=== PATIENT | female | born 1940 | race Caucasian/White ===

== ENCOUNTER 2017-11-23 13:43 | Observation (INO) | payer MEDICARE, OTHER ==
--- NOTE | 2017-11-23 14:40 | ER Document Report ---
ED Medical Screen (RME) - General Chief Complaint: Chest Pain Stated Complaint: CHEST PAIN, IRREGULAR HEART BEAT Time Seen by Provider: 11/23/17 14:38 Mode of Arrival: Ambulatory Information source: Patient, Relative TRAVEL OUTSIDE OF THE [place] IN LAST 30 DAYS: No - HPI Patient complains to provider of: cp; palpitations Onset: This morning - pt has h/o PVC's seen by her PCP 2 days ago. Developed SSCP earlier today. Has taken ASA. - Related Data Allergies/Adverse Reactions: Penicillins Allergy (Verified 12/30/15 06:57) rash hives Past Medical History - Past Medical History Cardiac Medical History: Reports: Hx Hypertension Denies: Hx Heart Attack Pulmonary Medical History: Denies: Hx Asthma Neurological Medical History: Denies: Hx Cerebrovascular Accident, Hx Seizures GI Medical History: Denies: Hx Hepatitis, Hx Hiatal Hernia, Hx Ulcer Infectious Medical History: Denies: Hx Hepatitis Past Surgical History: Denies: Hx Mastectomy, Hx Open Heart Surgery, Hx Pacemaker Physical Exam - Vital signs Vitals: Temp Pulse Resp BP Pulse Ox 98.7 F 70 16 191/61 H 97 11/23/17 14:07 11/23/17 14:07 11/23/17 14:07 11/23/17 14:07 11/23/17 14:07 Course - Vital Signs Vital signs: Temp Pulse Resp BP Pulse Ox 98.7 F 70 16 191/61 H 97 11/23/17 14:07 11/23/17 14:07 11/23/17 14:07 11/23/17 14:07 11/23/17 14:07
[2017-11-23 15:13] LABS: ABSOLUTE BASOPHILS # (AUTO) 0.1 10^3/uL (0.0-0.2); ABSOLUTE EOSINOPHILS # (AUTO) 0.2 10^3/uL (0.0-0.6); ABSOLUTE LYMPHOCYTES (AUTO) 2.1 10^3/uL (0.5-4.7); ABSOLUTE MONOCYTES (AUTO) 0.8 10^3/uL (0.1-1.4); ABSOLUTE NEUT (AUTO) 4.1 10^3/uL (1.7-8.2); BASOPHILS % (AUTO) 0.9 % (0-2); EOSINOPHILS % (AUTO) 2.4 % (0-6); HEMATOCRIT 38.5 % (36.0-47.0); HEMOGLOBIN 13.1 g/dL (12.0-15.5); LYMPHOCYTES % (AUTO) 28.4 % (13-45); MEAN CORPUSCULAR HEMOGLOBIN 29.9 pg (27.0-33.4); MEAN CORPUSCULAR HGB CONC 34.1 g/dL (32.0-36.0); MEAN CORPUSCULAR VOLUME 88 fl (80-97); MONOCYTES % (AUTO) 11.4 % (3-13); PLATELET COUNT 195 10^3/uL (150-450); RED BLOOD COUNT 4.38 10^6/uL (3.72-5.28); RED CELL DISTRIBUTION WIDTH 13.5 % (11.5-14.0); SEGMENTED NEUTROPHILS % (AUTO) 56.9 % (42-78); TOTAL CELLS COUNTED % (AUTO) 100 %; WHITE BLOOD COUNT 7.2 10^3/uL (4.0-10.5)
[2017-11-23 15:34] LABS: BLOOD UREA NITROGEN 27 mg/dL (7-20); CALCIUM 9.9 mg/dL (8.4-10.2); GLUCOSE 129 mg/dL (75-110)
[2017-11-23 15:35] LABS: ALANINE AMINOTRANSFERASE 53 U/L (9-52); ALBUMIN 4.7 g/dL (3.5-5.0); ALKALINE PHOSPHATASE 56 U/L (38-126); ANION GAP 12 (5-19); ASPARTATE AMINO TRANSFERASE 37 U/L (14-36); BILIRUBIN,DIRECT 0.3 mg/dL (0.0-0.4); BILIRUBIN,TOTAL 0.8 mg/dL (0.2-1.3); CARBON DIOXIDE 28 mmol/L (22-30); CHLORIDE 104 mmol/L (98-107); CREATINE KINASE 68 U/L (30-135); POTASSIUM 3.6 mmol/L (3.6-5.0); SODIUM 143.7 mmol/L (137-145); TOTAL PROTEIN 7.9 g/dL (6.3-8.2)
[2017-11-23 15:46] LABS: CREATINE KINASE MB 1.08 ng/mL (<4.55)
[2017-11-23 15:49] LABS: TROPONIN I < 0.012 ng/mL
--- NOTE | 2017-11-23 16:24 | ER Document Report ---
ED Cardiac - General Chief Complaint: Chest Pain Stated Complaint: CHEST PAIN, IRREGULAR HEART BEAT Time Seen by Provider: 11/23/17 14:38 Mode of Arrival: Ambulatory Notes: The patient has a 77-year-old female, past medical history hypertension, presents with a few hours of substernal chest pain and feeling more frequent PVCs that cause her to cough. She took 325 mg aspirin prior to arrival and is having no chest pain on my evaluation. She has a known history of PVCs and saw her primary care physician 2 days ago for these symptoms. Her Cardizem was increased to 360 mg daily and she has an appointment with Dr. Clark ( Cardiology) in 6 days. She denies syncope, shortness of breath, nausea, vomiting , back pain, headache, rash, numbness or tingling. TRAVEL OUTSIDE OF THE [place] IN LAST 30 DAYS: No - Related Data Allergies/Adverse Reactions: Penicillins Allergy (Verified 12/30/15 06:57) rash hives Past Medical History - General Information source: Patient, Relative - Social History Smoking Status: Former Smoker Frequency of alcohol use: None Drug Abuse: None Family History: Reviewed & Not Pertinent Patient has suicidal ideation: No Patient has homicidal ideation: No - Past Medical History Cardiac Medical History: Reports: Hx Hypercholesterolemia, Hx Hypertension Denies: Hx Heart Attack Pulmonary Medical History: Denies: Hx Asthma Neurological Medical History: Denies: Hx Cerebrovascular Accident, Hx Seizures Renal/ Medical History: Denies: Hx Peritoneal Dialysis GI Medical History: Reports: Hx Gastroesophageal Reflux Disease. Denies: Hx Hepatitis, Hx Hiatal Hernia, Hx Ulcer Infectious Medical History: Denies: Hx Hepatitis Past Surgical History: Reports: Hx Orthopedic Surgery - carpal tunnel right. Denies: Hx Mastectomy, Hx Open Heart Surgery, Hx Pacemaker Review of Systems - Review of Systems Notes: REVIEW OF SYSTEMS: CONSTITUTIONAL: -fevers, -chills EENT: -eye pain, -difficulty swallowing, -nasal congestion CARDIOVASCULAR: +chest pain, -syncope. RESPIRATORY: -cough, -SOB GASTROINTESTINAL: -abdominal pain, -nausea, -vomiting, -diarrhea GENITOURINARY: -dysuria, -hematuria MUSCULOSKELETAL: -back pain, -neck pain SKIN: -rash or skin lesions. HEMATOLOGIC: -easy bruising or bleeding. LYMPHATIC: -swollen, enlarged glands. NEUROLOGICAL: -altered mental status or loss of consciousness, -headache, - neurologic symptoms PSYCHIATRIC: -anxiety, -depression. ALL OTHER SYSTEMS REVIEWED AND NEGATIVE. Physical Exam - Vital signs Vitals: Temp Pulse Resp BP Pulse Ox 98.7 F 70 16 191/61 H 97 11/23/17 14:07 11/23/17 14:07 11/23/17 14:07 11/23/17 14:07 11/23/17 14:07 - Notes Notes: PHYSICAL EXAMINATION: GENERAL: Well-appearing, well-nourished and in no acute distress. HEAD: Atraumatic, normocephalic. EYES: Pupils equal round and reactive to light, extraocular movements intact, sclera anicteric, conjunctiva are normal. ENT: nares patent, oropharynx clear without exudates. Moist mucous membranes. NECK: Normal range of motion, supple without lymphadenopathy LUNGS: Breath sounds clear to auscultation bilaterally and equal. No wheezes rales or rhonchi. HEART: Regular rate and rhythm without murmurs ABDOMEN: Soft, nontender, normoactive bowel sounds. No guarding, no rebound. No masses appreciated. EXTREMITIES: Normal range of motion, no pitting or edema. No cyanosis. NEUROLOGICAL: Cranial nerves grossly intact. Normal speech, normal gait. Normal sensory and motor exams. PSYCH: Normal mood, normal affect. SKIN: Warm, Dry, normal turgor, no rashes or lesions noted. Course - Re-evaluation Re-evalutation: Patient with a few hours of substernal chest pain that resolved upon my evaluation. While on the monitor, she is having frequent PVCs and is already on 360 mg Cardizem ER for these. EKG does not show a STEMI and first troponin is negative. Patient's last stress test was 17 years ago in [place] she has never had a heart catheterization. Her HEART score is 6 (1 for concerning story, 1 for EKG, 2 for age, 2 for risk factors, 0 for troponin). Symptoms are atypical for aortic dissection or PE at this time. Spoke to patient and due to her elevated heart score, recommend observation for further evaluation of her chest pain and possible stress test in the morning. She agrees with plan. Her primary care physician is Dr. Landen Tyson. 11/23/17 16:48 Spoke to Jonnie Pond and she will admit patient to Tele Obs. - Vital Signs Vital signs: Temp Pulse Resp BP Pulse Ox 98.7 F 70 17 159/61 H 95 11/23/17 14:07 11/23/17 14:07 11/23/17 18:00 11/23/17 16:01 11/23/17 18:00 - Laboratory Result Diagrams: 11/23/17 14:54 11/23/17 14:54 Laboratory results interpreted by me: 11/23/17 14:54 BUN 27 H Glucose 129 H AST 37 H ALT 53 H - Diagnostic Test Radiology reviewed: Image reviewed, Reports reviewed Radiology results interpreted by me: CXR: NAD - EKG Interpretation by Me EKG shows normal: Sinus rhythm, [place], Intervals, QRS Complexes, ST-T Waves Rate: Normal Rhythm: PVC's When compared to previous EKG there are: Previous EKG unavailable Additional EKG results interpreted by me: No STEMI Discharge - Discharge Clinical Impression: Frequent unifocal PVCs Chest pain Qualifiers: Chest pain type: unspecified Qualified Code(s): R07.9 - Chest pain, unspecified Condition: Stable Disposition: ADMITTED OBSERVATION Admitting Provider: Hospitalist - [facility] Admitted: Telemetry
[2017-11-23] MEDS ORDERED: ACETAMINOPHEN 325 MG TABLET PO PRN (17:06)
--- NOTE | 2017-11-23 17:06 | RADIOLOGY REPORT (SQ) ---
EXAM DESCRIPTION: CHEST PA/LAT COMPLETED DATE/TIME: 11/23/2017 4:53 pm REASON FOR STUDY: cp COMPARISON: None. EXAM PARAMETERS: NUMBER OF VIEWS: two views TECHNIQUE: Digital Frontal and Lateral radiographic views of the chest acquired. RADIATION DOSE: NA LIMITATIONS: none FINDINGS: LUNGS AND PLEURA: No opacities, masses or pneumothorax. No pleural effusion. MEDIASTINUM AND HILAR STRUCTURES: No masses or contour abnormalities. HEART AND VASCULAR STRUCTURES: Heart normal size. No evidence for failure. BONES: No acute findings. HARDWARE: None in the chest. OTHER: No other significant finding. IMPRESSION: NO SIGNIFICANT RADIOGRAPHIC FINDING IN THE CHEST. TECHNICAL DOCUMENTATION: JOB ID: [id number] [employer]- All Rights Reserved Reading location - IP/workstation name: [email or web address]
[2017-11-23] MEDS ORDERED: NORMAL SALINE 1000 ML 1,000 ML IV ONE (18:27)
[2017-11-23] MEDS ORDERED: ENOXAPARIN SODIUM INJ 40 MG/0.4 ML DISP.SYRIN SUBCUT ONE (19:00)
--- NOTE | 2017-11-23 19:05 | EKG REPORT ---
SEVERITY:- ABNORMAL ECG - SINUS RHYTHM MULTIPLE VENTRICULAR PREMATURE COMPLEXES NONSPECIFIC ST-T CHANGES DIFFUSE LEADS. : Confirmed by: Zen Smith MD 23-Nov-2017 19:05:35
--- NOTE | 2017-11-23 21:08 | HISTORY AND PHYSICAL E ---
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 Clark CHIEF COMPLAINT: Chest heaviness. HISTORY OF PRESENT ILLNESS: The patient is a very pleasant, 77-year-old female with a past medical history of hypertension and PVCs. The patient prevented to the Emergency Department with a chief complaint of chest heaviness. The patient reports a long history of PVCs which she describes as stress induced. The patient stated that when she first sought help for this was in [place]. She saw cardiology at that time and had a stress test which was reported to be "normal." The patient had been on a number of agents to control her blood pressure, and does believe that metoprolol made her quite sleepy and groggy, and that is the reason she is not using it. The patient apparently had been on Cardizem for quite a period of time, and recently, about a year ago, had her dosage increased and has not had any symptomatic PVCs since that time. However, the patient states that since July she has had ever increasing stress in her life and has had more frequent PVCs leading to her have chest discomfort. Upon presentation in the Emergency Department, the patient was found to have no acute EKG changes. Initial troponin was found to be unremarkable. The patient was found to be in sinus rhythm with no evidence of PVCs, but no evidence of coupling, and the patient has been referred to the hospital for observation and management of chest pain. PAST MEDICAL HISTORY: Remarkable for: 1. Hypertension. 2. Hypothyroidism. 3. Glaucoma. 4. Hyperlipidemia. 5. GERD. 6. Frequent PVCs. PAST SURGICAL HISTORY: Remarkable for right carpal tunnel surgery. ALLERGIES: Include: PENICILLIN. HOME MEDICATIONS: Include: 1. Lumigan 1 drop in both eyes q. hour of sleep. 2. Cardizem CD 360 mg p.o. daily. 3. Hydrochlorothiazide 25 mg daily. 4. Synthroid 75 mcg p.o. q.a.m. 5. Omeprazole 20 mg p.o. daily. 6. Livalo 1 mg p.o. q. hour of sleep. 7. Timoptic 0.25%, 1 drop in both eyes b.i.d. 8. Valsartan 320 mg p.o. daily. SOCIAL HISTORY: The patient currently resides at home with her , who is also her surrogate decision maker. He can be reached at [phone]. The patient is retired. She denies any history of alcohol use. No history of illicit drug use. The patient does report a history of tobacco. She quit smoking a decade ago. FAMILY MEDICAL HISTORY: The patient's parents are of old age. The patient does have children who are healthy. Denies any chronic familial medical problems. REVIEW OF SYSTEMS: CONSTITUTIONAL: The patient denies any fevers or chills. No dizziness or weakness or loss of appetite. SKIN: The patient denies any diaphoresis, rashes, bruising, or itching. HEENT: Denies any visual change or hearing loss. No nasal drainage or sore throat. No headache. CARDIOVASCULAR: The patient denies any shortness of breath, chest pain, edema, heart palpitations. Does admit a chest heaviness. RESPIRATORY: Denies any cough, sputum production, or hemoptysis. GASTROINTESTINAL: Denies any nausea, vomiting, diarrhea, abdominal pain, bloating, hematemesis, constipation, or melena. No hematochezia. GENITOURINARY: Denies any hematuria, pyuria, or dysuria. MUSCULOSKELETAL: Denies any acute or chronic joint pain. NEUROLOGICAL: No seizures, tremors, or loss of consciousness. HEMATOLOGIC: Denies any thelma bleeding, easy bruising. ENDOCRINE: Denies any recent weight changes. PSYCHIATRIC: Denies any suicidal or homicidal ideations. The rest of the review of the other organ systems is negative. PHYSICAL EXAMINATION: GENERAL: On examination, the patient is a well-developed, well-nourished, 77-year-old female who is awake, alert, and oriented to person, place, time, and situation. She is verbal to conversation. Would not appear to be in any acute distress. VITAL SIGNS: Temperature is 98.7. Pulse 70. Respirations 16. Blood pressure is 159/61. Oxygen saturation is 97% on room air. SKIN: Warm, dry, no rash. She is not diaphoretic. HEENT: Pupils equal, round, and reactive to light and accommodation. Sclerae are not icteric. There are no mouth lesions. Tongue is midline. Neck is supple. There is no JVD. CARDIOVASCULAR: The heart has a normal sinus rhythm with occasional PVCs. CHEST: Symmetrical, unlabored. ABDOMEN: Nondistended. EXTREMITIES: No clubbing, cyanosis, edema, or peripheral signs of embolization. Pedal pulses noted to be +1 bilaterally. PSYCHIATRIC: Appropriate affect. Pleasant mood. DIAGNOSTIC STUDIES: Hematology panel on 11/23/2017: WBCs are 7.2, hemoglobin 13.1, hematocrit 38.5, platelet count is 195,000. Chemistry panel on 11/23/2017: Sodium is 143, potassium 3.3, chloride is 104, carbon dioxide 28, BUN 27, creatinine is 0.7, glucose 129, calcium is 9.9, bilirubin was 0.8, AST 37, ALT 63, alk phos 56, total protein 7.9, albumin 4.7. CK 68, CK-MB is 1.08, troponin is 0.012. Chest x-ray obtained on 11/23/2017 reveals no significant radiographic finding of the chest. EKG obtained on 11/23/2017 reveals sinus rhythm. IMPRESSION AND PLAN: 1. Chest heaviness and frequent premature ventricular contractions. Will resume the patient's home medications. Additionally, the patient does appear slightly dehydrated with an elevated BUN. Will give the patient a liter of fluid and see if there is improvement in her symptoms with this. We will also schedule her for a stress test, as the patient does have an upcoming appointment with Dr. Clark and would like to have this done prior to seeing him, which is reasonable. Will obtain serial cardiac enzymes, repeat EKG, and monitor continuously. 2. Hypertension. Will continue the patient's home blood pressure medications and follow. 3. Gastroesophageal reflux disease. Will continue the patient's home proton-pump inhibitor. 4. Deep-venous thrombosis prophylaxis. We will cover the patient with Lovenox. DISPOSITION: THE PATIENT IS A FULL CODE. Due to the patient's symptomatology and diagnostic findings, will reevaluate in the a.m. Time spent on this admission, including assessment and plan, physical examination, patient education, and review of records is 50 minutes. DICTATING PHYSICIAN: SHELIA GARCÍA NP [id number] PHY#: [id number] ID: [id number] JOB#: [id number] ACCT: [id number] cc: >
[2017-11-23] MEDS ORDERED: PITAVASTATIN CALCIUM 1 MG PO SCH (22:00)
[2017-11-23] MEDS: TIMOLOL MALEATE 0.25% OPH SOLN 5 ML OU SCH (22:08)
[2017-11-23] MEDS: BIMATOPROST 0.01% OPH SOLN 2.5 ML/BOTTLE OU SCH (22:08)
[2017-11-23] MEDS: DOCUSATE SODIUM 100 MG CAPSULE PO SCH (22:08)
[2017-11-24] MEDS: LANSOPRAZOLE 15 MG TAB.RAP.DR PO SCH (06:08)
[2017-11-24] MEDS: LEVOTHYROXINE SODIUM 0.075 MG TABLET PO SCH (06:08)
[2017-11-24 07:30] LABS: CHOLESTEROL 201.42 mg/dL (0-200); TRIGLYCERIDES 142 mg/dL (<150)
[2017-11-24 07:41] LABS: DIRECT LDL 131 mg/dL (<100)
--- NOTE | 2017-11-24 08:55 | EKG REPORT ---
SEVERITY:- BORDERLINE ECG - SINUS RHYTHM MILD NONSPECIFIC ST-T CHANGES ANTERIOR LEADS. : Confirmed by: Zen Smith MD 24-Nov-2017 08:54:54
[2017-11-24] MEDS ORDERED: DILTIAZEM HCL 360 MG PO SCH (10:00)
[2017-11-24] MEDS ORDERED: LOSARTAN POTASSIUM 25 MG TABLET PO SCH (10:30)
--- NOTE | 2017-11-24 10:40 | PDOC CONSULTATION ---
Consultation Consult Date: 11/24/17 Attending physician:: BROWN PEREZ Consult reason:: Chest pain and palpitations History of Present Illness Admission Date/PCP: 11/23/17 17:56 ERLIN LIMON MD Patient complains of: Chest pain and palpitations History of Present Illness: The patient has a 77-year-old female, past medical history hypertension, presents with a few hours of substernal chest pain and feeling more frequent PVCs that cause her to cough. She took 325 mg aspirin prior to arrival and is having no chest pain on my evaluation. She has a known history of PVCs and saw her primary care physician 2 days ago for these symptoms. Her Cardizem was increased to 360 mg daily and she has an appointment with Dr. Clark ( Cardiology) in 6 days. She denies syncope, shortness of breath, nausea, vomiting , back pain, headache, rash, numbness or tingling. Patient describes intolerance to multiple statins except pitavastatin. Patient also describes side effects to previous beta-blockers. Patient also describes difficult to control hypertension for many years. She does describe history of chronic habitual snoring. Past Medical History Cardiac Medical History: Reports: Hyperlipidema, Hypertension Denies: Myocardial Infarction Pulmonary Medical History: Denies: Asthma Neurological Medical History: Denies: Seizures GI Medical History: Reports: Gastroesophageal Reflux Disease Denies: Hepatitis, Hiatal Hernia Hematology: Denies: Anemia, Sickle Cell Disease Past Surgical History Past Surgical History: Reports: Orthopedic Surgery - carpal tunnel right Denies: Amputation, Mastectomy, Pacemaker Social History Information Source: Patient Smoking Status: Former Smoker - Advance Directive Resuscitation Status: Full Code Surrogate healthcare decision maker:: Patient's is the surrogate decision-maker Family History Family History: Hypertension Parental Family History Reviewed: Yes Children Family History Reviewed: Yes Sibling(s) Family History Reviewed.: Yes Medication/Allergy Home Medications: Bimatoprost [Lumigan 0.01% Oph Soln 2.5 ml/Bottle] 1 drop OU QHS 11/23/17 Diltiazem HCl [Diltiazem 24Hr Cd] 360 mg PO DAILY 11/23/17 Hydrochlorothiazide [Hydrodiuril 25 mg Tablet] 25 mg PO DAILY 11/23/17 Levothyroxine Sodium [Synthroid] 75 mcg PO Q6AM 11/23/17 Omeprazole 20 mg PO DAILY 11/23/17 Pitavastatin Calcium [Livalo] 1 mg PO QHS 11/23/17 Timolol Maleate [Timoptic 0.25% Oph Soln 5 ml] 1 drop OU BID 11/23/17 Valsartan [Diovan] 320 mg PO DAILY 11/23/17 Allergies/Adverse Reactions: Penicillins Allergy (Verified 12/30/15 06:57) rash hives Review of Systems Review of Systems: Please see history of present illness and past medical history as wall. Constitutional: No fever or chills reported. Head : No recent chronic headaches, recent head injury. Eyes: No recent eye pain, diplopia, redness, discharge, acute visual changes. Ears: No recent chronic ear pain, acute hearing loss, ear discharge. Oral cavity: No recent ulcerations, bleeding, oral cavity discomfort. Neck: No recent acute neck pain reported. Hematologic: No recent easy bruising or bleeding or hematologic malignancy reported. Lymphatic: No recent lymphatic malignancy, chronic lymphadenopathy reported yet Cardiovascular system review: See history of present illness. Respiratory system review: No recent chronic cough, hemoptysis, blood clots in the lungs reported. Mild Shortness of breath on exertion Gastrointestinal system review: Negative for any recent acute or chronic abdominal pain, hematemesis, melena, recent change in bowel habits. Genitourinary system review: No recent acute or chronic hematuria, flank pain, UTI etc. reported. Skin system review: Negative for any recent abnormal bruising, no rash, no pruritus reported. Neurologic: No prior history of strokes, mini strokes, seizure disorder. Psychologic: No history of major psychosis or major depression reported. Musculoskeletal: Minor aches and pains reported. No acute joint swelling reported. Endocrine: No recent polyuria, polydipsia, recent heat or cold intolerance. Physical Exam Vital Signs: Temp Pulse Resp BP Pulse Ox 98.0 F 58 L 16 164/58 H 98 11/24/17 07:12 11/24/17 07:12 11/24/17 07:12 11/24/17 07:12 11/24/17 07:12 Intake & Output 11/23/17 11/24/17 11/25/17 06:59 06:59 06:59 Intake Total 1341 Output Total 700 Balance 641 Weight 64.2 kg Exam: GENERAL: well-nourished and in no acute distress. Alert and oriented x3 HEAD: Atraumatic, normocephalic. EYES: Pupils equal round and reactive to light, extraocular movements intact, sclera anicteric, conjunctiva are normal. ENT: TMs normal, nares patent, oropharynx clear without exudates. Moist mucous membranes. No oral ulcerations or bleeding gums noted NECK: supple without lymphadenopathy. Trachea is central. No cervical or axillary lymphadenopathy noted. Carotids are 2+, JVD WNL LUNGS: Respiration seems nonlabored, no significant accessory muscle action noted. Breath sounds clear to auscultation bilaterally and equal noted. No wheezes rales or rhonchi noted. No significant dullness noted on percussion. CHEST: Palpation of the chest wall shows no significant chest wall tenderness. No other significant abnormalities noted. 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 ABDOMEN: Soft, no significant tenderness appreciated, normoactive bowel sounds. No guarding, no rebound. No rigidity noted . No masses appreciated. EXTREMITIES: Pedal pulses are 1-2+, no calf tenderness noted. No clubbing or cyanosis.trace pedal edema noted NEUROLOGICAL: Focused neurological exam showed no significant neurologic deficit. Normal speech, no focal weakness appreciated. PSYCH: Normal mood, normal affect. Judgment and insight within normal limits. SKIN: No significant ecchymosis, rash, ulcerations or signs of pruritus noted. MUSCULOSKELETAL EXAM: No significant joint swelling noted. Results Laboratory Results: 11/24/17 06:16 Triglycerides 142 Cholesterol 201.42 H LDL Cholesterol Direct 131 H VLDL Cholesterol 28.0 HDL Cholesterol 45 11/23/17 11/24/17 18:10 00:34 Troponin I < 0.012 0.015 EKG Comments: Sinus rhythm, no acute ST-T wave changes noted Impressions: Chest X-Ray 11/23/17 14:38 IMPRESSION: NO SIGNIFICANT RADIOGRAPHIC FINDING IN THE CHEST. Assessment & Plan - Diagnosis (1) Chest pain Qualifiers: Chest pain type: unspecified Qualified Code(s): R07.9 - Chest pain, unspecified (2) Frequent unifocal PVCs Is this a current diagnosis for this admission?: Yes (3) Hypertension Qualifiers: Hypertension type: essential hypertension Qualified Code(s): I10 - Essential (primary) hypertension Is this a current diagnosis for this admission?: Yes (4) Dyslipidemia Is this a current diagnosis for this admission?: Yes (5) Sleep disorder Is this a current diagnosis for this admission?: Yes (6) Heart murmur Is this a current diagnosis for this admission?: Yes - Notes Notes: Chest pain: Agreed that there is intermediate probability of chest pain being from underlying coronary artery disease. Cardiac enzymes and EKG has been relatively unremarkable. Agree with nuclear stress test which was performed. Results are pending. Frequent ectopics, ventricular and also palpitations: Patient will benefit from a 2D echo. This was ordered stat. This is a significant symptom for this patient. Patient was noted to have bigeminy run of ventricular ectopy during the stress test. Recommend maintaining electrolytes WNL. Hypertension: Blood pressure has been difficult to control. Patient seems to have underlying sleep apnea syndrome based on oropharyngeal exam, comorbid diagnosis and history of loud snoring. Dyslipidemia: Patient has intolerance to multiple statins except for pitavastatin. Patient may be allowed to take her own home medication in this regard as our pharmacy does not carry this particular medication. Sleep disorder: Patient will benefit from a sleep study. I will be happy to schedule this as an outpatient. Heart murmur: Patient seems to have a aortic incompetence murmur. Will get a 2D echo to evaluate this further. - Time Time Spent: 30 to 50 Minutes - CODE STATUS was discussed, patient remains full code. Surrogate decision-maker unchanged. Multiple medical problems were addressed. More than 50% of the time spent coordinating care, discussing management plans with involved caregivers. Management plans discussed with involved personnels. Medical decision making was of moderate to high complexity , patient's has multiple comorbidities. Medications reviewed and adjusted accordingly: Yes
[2017-11-24] MEDS ORDERED: VALSARTAN 160 MG TABLET PO ONE (11:15)
[2017-11-24] MEDS: ENOXAPARIN SODIUM INJ 40 MG/0.4 ML DISP.SYRIN SUBCUT SCH (11:53)
[2017-11-24] MEDS: DOCUSATE SODIUM 100 MG CAPSULE PO SCH ×2 (11:54→17:06)
[2017-11-24] MEDS: DILTIAZEM HCL 180 MG CAPSULE.CR PO SCH (11:55)
[2017-11-24] MEDS: TIMOLOL MALEATE 0.25% OPH SOLN 5 ML OU SCH ×2 (11:56→21:16)
--- NOTE | 2017-11-24 12:08 | DRAGON STRESS TEST REPORT ---
INTRAVENOUS LEXISCAN CARDIOLITE STRESS TEST USING SINGLE PHOTON EMMISION COMPUTERIZED TOMOGRAPHIC. DATE OF PROCEDURE: November 24, 2017, INDICATION : Chest pain and increased ventricular ectopy CARDIAC RISK FACTORS: Hypertension, dyslipidemia, family history of atrial fibrillation RESTING EKG: Sinus rhythm without any baseline ST-T wave changes. STRESS EKG: No significant ST segment changes but increased ventricular ectopy noted. REASON FOR TERMINATION: Protocol. PROCEDURE REPORT: Baseline heart rate 63 beats per minute with blood pressure of 182/69. Patient had no significant complaints. Heart rate at 2 minutes post bolus 88 with a blood pressure of 178/65. 3 minutes post bolus heart rate 79 with blood pressure of 179/64. No significant EKG changes were noted. Patient had no significant complaints during the procedure or postprocedure. Patient injected with Aminophyllin 75 mg at 3 minutes or later after Lexiscan bolus. CONCLUSIONS: Normal EKG and hemodynamic response to IV LexiScan. NUCLEAR DATA: At rest the patient was given 10.77 millicuries of technetium 99 sestamibi injected intravenously. As per protocol rest gated SPECT images were obtained. On day of stress test, the patient was given intravenous LexiScan at a dose of 0.4 mg in 5 mL intravenously, followed by flush with normal saline. Subsequently the stress dose of 31.7 millicuries of technetium 99 sestamibi was injected intravenously. As per protocol stress gated images were obtained. NUCLEAR INTERPRETATION: Both raw and processed data were used for interpretation. Visual, qualitative, computer-generated quantitative data was used. There was good myocardial uptake of technetium compound. Motion artifact and soft tissue attenuations were noted. Increased visceral uptake was noted. No definitive areas of transient perfusion defect noted, No definitive areas of fixed perfusion defect or scars noted. Mild decreased uptake was noted in the distal anterior wall slightly more decreased in stress imaging as compared to rest imaging but is felt to be related to differences in breast attenuation artifact. No corresponding wall motion abnormalities noted. Clinical correlation is requested. EKG gated imaging showed LV EF at 68 %, rest and stress gated EF similar visually. T. I D. ratio was 1.20. Lung heart ratio noted to be within normal limits 0.36. No significant extracardiac and abnormal radiotracer activities were noted. RV free wall uptake was noted to be borderline increased. IMPRESSION: Also refer to comments under nuclear interpretation. Also test results needs to be interpreted in the context of pretest probability. 1. No definitive areas of transient perfusion defect noted. 2. There is no definitive scintigraphic evidence of myocardial infarction/scar. 3. EKG gated imaging shows left ventricular ejection fraction of approx. 68 %. 4. Clinical correlation requested as occasionally single vessel disease or balanced ischemia could be missed. In approximately 10% of the cases Lexiscan may not cause adequate vasodilatory stress. RECOMMENDATIONS: Aggressive risk factor modification and medical management. Further evaluation may be needed if continued symptoms or other high risk indicators are noted on clinical evaluation. Close cardiology follow-up is also recommended. Clinical correlation with echocardiogram derived ejection fraction. Inability to exercise by itself can lead to increased cardiovascular event risks. Consider cardiology consultation and or follow-up if clinically indicated. I am available for cardiology evaluation and consultation if requested by the vegetable washer, unless patient already has a it technician. ITZEL
--- NOTE | 2017-11-24 12:22 | XCELERA REPORT ---
[address] [address] Transthoracic Echocardiogram Report Name: SKIP HARPER Age: 77 yrs Gender: Female : 1940 Patient Status: Inpatient Patient Location: [address] [place] [address] Study Date: 11/24/2017 10:39 AM Height: 60 in Weight: 141 lb BSA: 1.6 m2 Procedure: A complete two-dimensional transthoracic echocardiogram was performed (2D, M-mode, spectral and color flow Doppler). The study was technically adequate with some images being suboptimal in quality. Reason For Study: Ventricular dysrhythmia Ordering Physician: RON PAZ Performed By: Jeanette Martínez Interpretation Summary The left ventricular ejection fraction is within normal limits. There is borderline concentric left ventricular hypertrophy. Doppler measurements suggest pseudonormalized left ventricular relaxation, which is associated with grade II/IV or mild to moderate diastolic dysfunction The left ventricle is grossly normal size. No regional wall motion abnormalities noted. The right ventricular systolic function is normal. The right atrium is normal in size The left atrium is mildly dilated. There is a mild amount of mitral regurgitation There is no mitral valve stenosis. There is a mild amount of aortic regurgitation There is no aortic valve stenosis The aortic root is not well visualized but is probably normal size. The inferior vena cava appeared normal and decreased > 50% with respiration (RAP 5-10 mmHg) There is no pericardial effusion. MMode/2D Measurements & Calculations RVDd: 3.4 cm LVIDd: 4.5 cm FS: 38.3 % Ao root diam: 2.3 cm IVSd: 0.94 cm LVIDs: 2.8 cm EDV(Teich): 93.3 ml LVPWd: 0.88 cm ESV(Teich): 29.2 ml Ao root area: 4.3 cm2 EF(Teich): 68.7 % LA dimension: 3.7 cm Doppler Measurements & Calculations MV E max jaja: MV P1/2t max jaja: Ao V2 max: AI max jaja: 124.9 cm/sec 124.4 cm/sec 163.7 cm/sec 424.9 cm/sec MV A max jaja: MV P1/2t: 67.3 msec Ao max PG: AI max P.2 cm/sec 10.7 mmHg 72.2 mmHg MV E/A: 1.2 MVA(P1/2t): 3.3 cm2 AI dec slope: MV dec slope: 541.0 cm/sec2 251.8 cm/sec2 MV dec time: AI P1/2t: 0.21 sec 494.3 msec LV V1 max PG: PA V2 max: PI end-d jaja: TR max jaja: 4.2 mmHg 78.5 cm/sec 120.8 cm/sec 293.2 cm/sec LV V1 max: PA max P.5 mmHg TR max P.7 cm/sec 34.4 mmHg Left Ventricle The left ventricle is grossly normal size. There is borderline concentric left ventricular hypertrophy. The left ventricular ejection fraction is within normal limits. Doppler measurements suggest pseudonormalized left ventricular relaxation, which is associated with grade II/IV or mild to moderate diastolic dysfunction. No regional wall motion abnormalities noted. Right Ventricle The right ventricle is grossly normal size. There is normal right ventricular wall thickness. The right ventricular systolic function is normal. Atria The right atrium is normal in size. The left atrium is mildly dilated. Interarterial septum not well visualized and not well dopplered. Cannot comment on ASD/PFO presence. Mitral Valve The mitral valve is grossly normal. There is no mitral valve stenosis. There is a mild amount of mitral regurgitation. Aortic Valve The aortic valve is grossly normal. There is no aortic valve stenosis. There is a mild amount of aortic regurgitation. Tricuspid Valve The tricuspid valve is not well visualized, but is grossly normal. There is no tricuspid stenosis. There is a mild amount of tricuspid regurgitation. There is mild to moderate pulmonary hypertension by echo. Right ventricular systolic pressure is estimated to be elevated at 40-50mmHg. Pulmonic Valve The pulmonic valve is not well visualized. Great Vessels The aortic root is not well visualized but is probably normal size. The inferior vena cava appeared normal and decreased > 50% with respiration (RAP 5-10 mmHg). Effusions There is no pericardial effusion. : RON PAZ > Ron Paz
[2017-11-24] MEDS ORDERED: REGADENOSON INJ 0.4 MG/5 ML DISP.SYRIN IV ONE (15:51)
[2017-11-24] MEDS ORDERED: AMINOPHYLLINE INJ/PF 250 MG/10 ML SDV IV ONE (15:51)
--- NOTE | 2017-11-24 16:34 | RADIOLOGY REPORT (SQ) ---
EXAM DESCRIPTION: CTA CHEST COMPLETED DATE/TIME: 11/24/2017 3:26 pm REASON FOR STUDY: Chest pain R07.89 OTHER CHEST PAIN COMPARISON: Two-view chest 11/23/2017 TECHNIQUE: CT scan of the chest performed using helical scanning technique with dynamic intravenous contrast injection. Images reviewed with lung, soft tissue and bone windows. Reconstructed coronal and sagittal MPR images reviewed. Additional 3 dimensional post-processing performed to develop Maximal Intensity Projection images (WI P). All images stored on PACS. All CT scanners at this facility use dose modulation, iterative reconstruction, and/or weight based d osing when appropriate to reduce radiation dose to as low as reasonably achievable (ALARA). [facility]: Dose Right [facility]: CareDose [facility]: Dose Right [facility]: Teradose 4D [facility]: [employer] CONTRAST TYPE AND DOSE: contrast/concentration: Isovue 370.00 mg/ml; Total Contrast Delivered: 64.0 ml; Total Saline Delivered: 104.9 ml Contrast bolus adequate for pulmonary arteries and aorta. RENAL FUNCTION: Creatinine 0.87 RADIATION DOSE: CT Rad equipment meets quality standard of care and radiation dose reduction techniq ues were employed. CTDIvol: 3.3 - 52.9 mGy. DLP: 591 mGy-cm. . LIMITATIONS: None. FINDINGS: LUNGS AND PLEURA: No masses, infiltrates, pneumothorax. No pleural effusions, calcificati ons. AORTA AND GREAT VESSELS: No aneurysm. No dissection. HEART: No pericardial effusion. No significant coronary artery calcifications. PULMONARY ARTERIES: No emboli visualized in the main pulmonary arteries or the segmental branches. HILAR AND MEDIASTINAL STRUCTURES: No identified masses or abnormal nodes. Small hiatal hernia HARDWARE: None in the chest. UPPER ABDOMEN: In the left mid pole kidney, at the bottom edge of the field of view, a hyperdense 1.7 cm nodule projects off the dorsal mid pole left kidney. This could either represent a hemorrhagic c yst or a enhancing solid nodule. Bilateral renal ultrasound recommended for further characterization . THYROID AND OTHER SOFT TISSUES: No masses. No adenopathy. BONES: No acute or significant finding. 3D MIPS: Confirm above findings. OTHER: No other significant finding. IMPRESSION: No CTA evidence of acute pulmonary emboli or thoracic aortic dissection. No acute infiltrates. 1.7 cm nodule projecting dorsally off the left mid pole kidney, differential is hemorrhagic cyst vers us hyperdense solid nodule. Renal ultrasound recommended for further characterization COMMENT: Quality ID # [id number]: Final reports with documentation of one or more dose reduction techniques (e.g., Automated exposure control, adjustment of the mA and/or kV according to patient size, use of iterative reconstruction technique) TECHNICAL DOCUMENTATION: JOB ID: [id number] [employer]- All Rights Reserved Reading location - IP/workstation name: [email or web address]
--- NOTE | 2017-11-24 17:49 | PDOC PROGRESS REPORT ---
Subjective Progress Note for:: 11/24/17 Subjective:: Chest heaviness which is currently resolved. She does have a history of PVCs. She was admitted for further evaluation and while having a stress test today she did develop some PVCs. Reason For Visit: CHEST PAIN, FREQUENT UNIFOCAL PREMATURE VENTRICUAL Physical Exam Vital Signs: Temp Pulse Resp BP Pulse Ox 98.4 F 56 L 16 151/53 H 97 11/24/17 15:44 11/24/17 15:44 11/24/17 15:44 11/24/17 15:44 11/24/17 15:44 Intake & Output 11/23/17 11/24/17 11/25/17 06:59 06:59 06:59 Intake Total 1341 0 Output Total 700 Balance 641 0 Weight 64.2 kg General appearance: PRESENT: no acute distress, well-developed, well-nourished Head exam: PRESENT: atraumatic, normocephalic Eye exam: PRESENT: conjunctiva pink, EOMI, PERRLA. ABSENT: scleral icterus Ear exam: PRESENT: normal external ear exam Mouth exam: PRESENT: moist, tongue midline Neck exam: ABSENT: carotid bruit, JVD, lymphadenopathy, thyromegaly Respiratory exam: PRESENT: clear to auscultation mario. ABSENT: rales, rhonchi, wheezes Cardiovascular exam: PRESENT: RRR. ABSENT: diastolic murmur, rubs, systolic murmur Pulses: PRESENT: normal dorsalis pedis pul Vascular exam: PRESENT: normal capillary refill GI/Abdominal exam: PRESENT: normal bowel sounds, soft. ABSENT: distended, guarding, mass, organolmegaly, rebound, tenderness Rectal exam: PRESENT: deferred Extremities exam: PRESENT: full ROM. ABSENT: calf tenderness, clubbing, pedal edema Neurological exam: PRESENT: alert, awake, oriented to person, oriented to place , oriented to time, oriented to situation, CN II-XII grossly intact. ABSENT: motor sensory deficit Psychiatric exam: PRESENT: appropriate affect, normal mood. ABSENT: homicidal ideation, suicidal ideation Skin exam: PRESENT: dry, intact, warm. ABSENT: cyanosis, rash Results Laboratory Results: 11/24/17 11/24/17 06:16 06:16 Triglycerides 142 Cholesterol 201.42 H LDL Cholesterol Direct 131 H VLDL Cholesterol 28.0 HDL Cholesterol 45 TSH 3.83 11/23/17 11/24/17 11/24/17 18:10 00:34 06:16 Troponin I < 0.012 0.015 NT-Pro-B Natriuret Pep 246 Impressions: Chest X-Ray 11/23/17 14:38 IMPRESSION: NO SIGNIFICANT RADIOGRAPHIC FINDING IN THE CHEST. Chest/Abdomen CTA 11/24/17 12:25 IMPRESSION: No CTA evidence of acute pulmonary emboli or thoracic aortic dissection. No acute infiltrates. 1.7 cm nodule projecting dorsally off the left mid pole kidney, differential is hemorrhagic cyst versus hyperdense solid nodule. Renal ultrasound recommended for further characterization Assessment & Plan - Time Time Spent with patient: 15-24 minutes Medications reviewed and adjusted accordingly: Yes Anticipated discharge: Home - Plan Summary Plan Summary: Chest heaviness and frequent PVCs. Patient had a stress test done today. Cardiology consult has also been obtained for further evaluation to help as adjust her medications if needed. #2 hypertension stable. 3. Gastroesophageal reflux disease currently on PPI
[2017-11-24] MEDS: VALSARTAN 160 MG TABLET PO SCH (21:15)
[2017-11-24] MEDS: BIMATOPROST 0.01% OPH SOLN 2.5 ML/BOTTLE OU SCH (21:16)
[2017-11-24] MEDS ORDERED: ATORVASTATIN CALCIUM 40 MG TABLET PO SCH (22:00)
[2017-11-25] MEDS: LANSOPRAZOLE 15 MG TAB.RAP.DR PO SCH (05:16)
[2017-11-25] MEDS: LEVOTHYROXINE SODIUM 0.075 MG TABLET PO SCH (05:16)
[2017-11-25] MEDS: ENOXAPARIN SODIUM INJ 40 MG/0.4 ML DISP.SYRIN SUBCUT SCH (10:28)
[2017-11-25] MEDS: VALSARTAN 160 MG TABLET PO SCH (10:29)
[2017-11-25] MEDS: DOCUSATE SODIUM 100 MG CAPSULE PO SCH (10:29)
[2017-11-25] MEDS: TIMOLOL MALEATE 0.25% OPH SOLN 5 ML OU SCH (10:30)
[2017-11-25] MEDS: DILTIAZEM HCL 180 MG CAPSULE.CR PO SCH (10:30)
[2017-11-25 11:26] VITALS: BP 146/61
--- NOTE | 2017-11-25 11:29 | PDOC DISCHARGE SUMMARY ---
General - Admit/Disc Date/PCP Admission Date/Primary Care Provider: 11/23/17 17:56 ERLIN LIMON MD Discharge Date: 11/25/17 - Discharge Diagnosis (2) Dyslipidemia Is this a current diagnosis for this admission?: Yes (3) Frequent unifocal PVCs Is this a current diagnosis for this admission?: Yes (4) Heart murmur Is this a current diagnosis for this admission?: Yes (5) Hypertension Is this a current diagnosis for this admission?: Yes (6) Sleep disorder Is this a current diagnosis for this admission?: Yes - Additional Information Resuscitation Status: Full Code Discharge Diet: Cardiac Discharge Activity: Activity As Tolerated Home Medications: Bimatoprost [Lumigan 0.01% Oph Soln 2.5 ml/Bottle] 1 drop OU QHS 11/23/17 Diltiazem HCl [Diltiazem 24Hr Cd] 360 mg PO DAILY 11/23/17 Hydrochlorothiazide [Hydrodiuril 25 mg Tablet] 25 mg PO DAILY 11/23/17 Levothyroxine Sodium [Synthroid] 75 mcg PO Q6AM 11/23/17 Omeprazole 20 mg PO DAILY 11/23/17 Pitavastatin Calcium [Livalo] 1 mg PO QHS 11/23/17 Timolol Maleate [Timoptic 0.25% Oph Soln 5 ml] 1 drop OU BID 11/23/17 Valsartan [Diovan] 320 mg PO DAILY 11/23/17 History of Present Illness History of Present Illness: SKIP HARPER is a 77 year old female who Presented to the hospital with chest heaviness. She was admitted for further management. Pa Hospital Course Hospital Course: Patient was admitted to the telemetry floor. She had serial cardiac enzymes done and ultimately had a stress test done which reveals no significant findings except for PVCs during the stress test. A cardiology consult was thus obtained and two-dimensional echocardiogram was recommended. This showed an ejection fraction of 55% with no other significant findings. Patient has been monitored on telemetry with no further interventions planned and so she is being discharged home. She already has an appointment with a surfboard designer set up for November 27 and patient has been advised to follow-up with her surfboard designer. She is discharged home in stable condition CT of the abdomen done revealed a 1.7 cm nodule rejecting dorsally of the left mid pole. Renal ultrasound recommended for further characterization I will suggest follow-up with PCP regarding this. Physical Exam Vital Signs: Temp Pulse Resp BP Pulse Ox 98.3 F 64 16 146/59 H 99 11/25/17 08:37 11/25/17 08:37 11/25/17 08:37 11/25/17 08:37 11/25/17 08:37 Intake & Output 11/24/17 11/25/17 11/26/17 06:59 06:59 06:59 Intake Total 1341 912 Output Total 700 1850 Balance 641 -938 Weight 64.2 kg 67.8 kg General appearance: PRESENT: no acute distress Head exam: PRESENT: atraumatic Eye exam: PRESENT: conjunctival injection Ear exam: PRESENT: normal external ear exam Neck exam: ABSENT: carotid bruit, JVD, lymphadenopathy, thyromegaly Respiratory exam: PRESENT: clear to auscultation mario. ABSENT: rales, rhonchi, wheezes Cardiovascular exam: PRESENT: RRR, +S1, +S2, systolic murmur Pulses: PRESENT: normal dorsalis pedis pul GI/Abdominal exam: PRESENT: normal bowel sounds, soft. ABSENT: distended, guarding, mass, organolmegaly, rebound, tenderness Extremities exam: PRESENT: full ROM. ABSENT: calf tenderness, clubbing, pedal edema Musculoskeletal exam: PRESENT: ambulatory Neurological exam: PRESENT: alert, awake, oriented to person, oriented to place , oriented to time, oriented to situation, CN II-XII grossly intact. ABSENT: motor sensory deficit Results Laboratory Results: 11/24/17 06:16 TSH 3.83 11/23/17 11/24/17 11/24/17 18:10 00:34 06:16 Troponin I < 0.012 0.015 NT-Pro-B Natriuret Pep 246 EKG Comments: Labs- All tests 24 hr 11/24/17 11/24/17 06:16 06:16 NT-Pro-B Natriuret Pep 246 TSH 3.83 Chest X-Ray 11/23/17 14:38 IMPRESSION: NO SIGNIFICANT RADIOGRAPHIC FINDING IN THE CHEST. Chest/Abdomen CTA 11/24/17 12:25 IMPRESSION: No CTA evidence of acute pulmonary emboli or thoracic aortic dissection. No acute infiltrates. 1.7 cm nodule projecting dorsally off the left mid pole kidney, differential is hemorrhagic cyst versus hyperdense solid nodule. Renal ultrasound recommended for further characterization Impressions: Chest X-Ray 11/23/17 14:38 IMPRESSION: NO SIGNIFICANT RADIOGRAPHIC FINDING IN THE CHEST. Chest/Abdomen CTA 11/24/17 12:25 IMPRESSION: No CTA evidence of acute pulmonary emboli or thoracic aortic dissection. No acute infiltrates. 1.7 cm nodule projecting dorsally off the left mid pole kidney, differential is hemorrhagic cyst versus hyperdense solid nodule. Renal ultrasound recommended for further characterization Qualifiers - * PATEINT BEING DISCHARGED WITH ANY OF THE FOLLOWING DIAGNOSIS?: No Plan Time Spent: Less than 30 Minutes
--- NOTE | 2017-11-25 11:35 | PDOC PROGRESS REPORT ---
Subjective Progress Note for:: 11/25/17 Subjective:: Patient seems to be doing better with significant improvement. Pt is denying any chest arm or neck discomfort. Patient denying any PND, orthopnea. Patient denied any sustained palpitations, dizziness, syncope, near syncope. Patient denying any fever chills. Patient denying any other significant discomfort. Patient is maintaining sinus rhythm. Ventricular ectopy as still being noted. Review of systems: Rest review of systems negative. Medications: Medications have been reviewed. Reason For Visit: CHEST PAIN, FREQUENT UNIFOCAL PREMATURE VENTRICUAL Physical Exam Vital Signs: Temp Pulse Resp BP Pulse Ox 98.3 F 64 16 146/61 H 99 11/25/17 11:24 11/25/17 11:24 11/25/17 11:24 11/25/17 11:24 11/25/17 11:24 Intake & Output 11/24/17 11/25/17 11/26/17 06:59 06:59 06:59 Intake Total 1341 912 Output Total 700 1850 Balance 641 -938 Weight 64.2 kg 67.8 kg Exam: GENERAL: well-nourished and in no acute distress. Alert and oriented x3 HEAD: Atraumatic, normocephalic. EYES: Pupils equal round and reactive to light, extraocular movements intact, sclera anicteric, conjunctiva are normal. ENT: TMs normal, nares patent, oropharynx clear without exudates. Moist mucous membranes. No oral ulcerations or bleeding gums noted NECK: supple without lymphadenopathy. Trachea is central. No cervical or axillary lymphadenopathy noted. Carotids are 2+, JVD WNL LUNGS: Respiration seems nonlabored, no significant accessory muscle action noted. Breath sounds clear to auscultation bilaterally and equal noted. No wheezes rales or rhonchi noted. No significant dullness noted on percussion. CHEST: Palpation of the chest wall shows no significant chest wall tenderness. No other significant abnormalities noted. 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 1/6 littlejohn systolic murmur mitral area, no rubs, no gallops. ABDOMEN: Soft, no significant tenderness appreciated, normoactive bowel sounds. No guarding, no rebound. No rigidity noted . No masses appreciated. EXTREMITIES: Pedal pulses are 1-2+, no calf tenderness noted. No clubbing or cyanosis.trace pedal edema noted NEUROLOGICAL: Focused neurological exam showed no significant neurologic deficit. Normal speech, no focal weakness appreciated. PSYCH: Normal mood, normal affect. Judgment and insight within normal limits. SKIN: No significant ecchymosis, rash, ulcerations or signs of pruritus noted. MUSCULOSKELETAL EXAM: No significant joint swelling noted. Results Laboratory Results: 11/24/17 06:16 TSH 3.83 11/23/17 11/24/17 11/24/17 18:10 00:34 06:16 Troponin I < 0.012 0.015 NT-Pro-B Natriuret Pep 246 Impressions: Chest X-Ray 11/23/17 14:38 IMPRESSION: NO SIGNIFICANT RADIOGRAPHIC FINDING IN THE CHEST. Chest/Abdomen CTA 11/24/17 12:25 IMPRESSION: No CTA evidence of acute pulmonary emboli or thoracic aortic dissection. No acute infiltrates. 1.7 cm nodule projecting dorsally off the left mid pole kidney, differential is hemorrhagic cyst versus hyperdense solid nodule. Renal ultrasound recommended for further characterization Assessment & Plan - Diagnosis (1) Chest pain Qualifiers: Chest pain type: unspecified Qualified Code(s): R07.9 - Chest pain, unspecified Is this a current diagnosis for this admission?: Yes (2) Frequent unifocal PVCs Is this a current diagnosis for this admission?: Yes (3) Hypertension Qualifiers: Hypertension type: essential hypertension Qualified Code(s): I10 - Essential (primary) hypertension Is this a current diagnosis for this admission?: Yes (4) Dyslipidemia Is this a current diagnosis for this admission?: Yes (5) Sleep disorder Is this a current diagnosis for this admission?: Yes (6) Heart murmur Is this a current diagnosis for this admission?: Yes - Notes Notes: Chest pain: Resolved. Cardiac enzymes and EKG has been relatively unremarkable. Agree with nuclear stress test which was performed. Nuclear stress test was negative for any pharmacologic stress-induced ischemia. In addition, chest CTA did not show any significant coronary calcification, minor calcification noted. Frequent ectopics, ventricular and also palpitations: 2D echo shows normal LVEF , mild LVH, grade 2 diastolic dysfunction. Recommend maintaining electrolytes WNL. Recommend patient be tried on beta-isabel such as bisoprolol or bystolic which she may not have tried in the past. Sleep apnea syndrome is a common cause of increased ventricular ectopy. Hypertension: Blood pressure has been difficult to control. Patient seems to have underlying sleep apnea syndrome based on oropharyngeal exam, comorbid diagnosis and history of loud snoring. Dyslipidemia: Patient has intolerance to multiple statins except for pitavastatin. Patient may be allowed to take her own home medication in this regard as our pharmacy does not carry this particular medication. Sleep disorder: Patient will benefit from a sleep study. I will be happy to schedule this as an outpatient. Valvular heart disease: Patient noted to have mild mitral and mild aortic incompetence. No need for endocarditis prophylaxis - Time Time with patient: Greater than 35 minutes - Results of 2D echo, CTA of the chest and also nuclear stress test again reviewed with patient and her . They have been apprised of need for weight loss and also of scheduling a sleep study. I will be happy to follow patient in the office. CODE STATUS was discussed, patient remains full code. Surrogate decision-maker unchanged. Multiple medical problems were addressed. More than 50% of the time spent coordinating care, discussing management plans with involved caregivers. Management plans discussed with involved personnels. Medical decision making was of moderate to high complexity, patient's has multiple comorbidities. Medications reviewed and adjusted accordingly: Yes
== END 2017-11-25 12:20 | disposition home or self-care (01) ==
LOC: ER 13:43 → EH 17:56 → 5 19:30
PROVIDERS: ADMIT Emergency Medicine; ATTEND Emergency Medicine
DX: R07.9 Chest pain, unspecified (principal); I49.3 Ventricular premature depolarization; R01.1 Cardiac murmur, unspecified; I10 Essential (primary) hypertension; G47.9 Sleep disorder, unspecified; E78.5 Hyperlipidemia, unspecified; K21.9 Gastro-esophageal reflux disease without esophagitis; E03.9 Hypothyroidism, unspecified; H40.9 Unspecified glaucoma; I08.0 Rheumatic disorders of both mitral and aortic valves; Z79.899 Other long term (current) drug therapy; Z87.891 Personal history of nicotine dependence; Z82.49 Family history of ischemic heart disease and other diseases of the circulatory system
CPT/HCPCS: 93005 ×2; 99285; 36415 ×2; 82553; 82550; 84443; 85025; 80053; 84484 ×2; 80061; 83880; 93306; 93017; 71046; 78452; 71275; 93010 ×2; G0378 ×4; A9500; A9270 ×10; J2785; J1650 ×3; J3490 ×3; J7030; J0280; Q9969

== ENCOUNTER → 2017-12-11 | Outpatient (CLI) | payer MEDICARE, OTHER ==
--- NOTE | 2017-12-11 11:35 | RADIOLOGY REPORT (SQ) ---
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 TECHNIQUE: Dynamic and static grayscale images acquired of the kidneys and bladder and recorded on P ACS. Additional selected color Doppler and spectral images recorded. LIMITATIONS: None. FINDINGS: RIGHT KIDNEY: Normal size. Normal echogenicity. No solid or suspicious masses. No hydronep hrosis. No calcifications. LEFT KIDNEY: Normal size. Normal echogenicity. 1.8 cm circumscribed hypoechoic cortical nodule with heterogenous internal echoes. No hydronephrosis. No calcifications. BLADDER: No masses. OTHER FINDINGS: No other significant finding. IMPRESSION: 1.8 CM CORTICAL NODULE IN THE LEFT KIDNEY, EITHER SOLID MASS OR COMPLEX CYST CONTAINING DEBRIS. WOULD RECOMMEND FOLLOWUP WITH MRI TO MORE COMPLETELY EVALUATE. TECHNICAL DOCUMENTATION: JOB ID: [id number] [employer]- All Rights Reserved Reading location - IP/workstation name: [email or web address]
== END ==
LOC: RAD 09:58
PROVIDERS: ATTEND Internal Medicine
DX: C64.2 Malignant neoplasm of left kidney, except renal pelvis (principal)
CPT/HCPCS: 76770

== ENCOUNTER → 2018-10-10 | Outpatient (CLI) | payer MEDICARE, OTHER ==
--- NOTE | 2018-10-10 12:08 | WOMENS IMAGING REPORT ---
EXAM DESCRIPTION: BILAT SCREENING MAMMO W/CAD COMPLETED DATE/TIME: 10/10/2018 10:26 am REASON FOR STUDY: ROUTINE BILATERAL SCREENING;Z12.31 Z12.31 ENCNTR SCREEN MAMMOGRAM FOR MALIGNANT N EOPLASM OF UGO COMPARISON: None. TECHNIQUE: Standard craniocaudal and mediolateral oblique views of each breast recorded using [employer] acquisition. LIMITATIONS: None. FINDINGS: No masses, calcifications or architectural distortion. No areas of suspicion. Read with the assistance of CAD. .[facility] - R2 [employer] Version 1.3 .[facility] - R2 [employer] Version 1.3 .[facility] - R2 [employer] Version 2.4 .[facility] [place] R2 [employer] Version 2.4 .[facility] - R2 [employer] Version 9.2 IMPRESSION: NORMAL MAMMOGRAM. BIRADS 1. BREAST DENSITY: b. There are scattered areas of fibroglandular density. BIRAD: 1 NEGATIVE RECOMMENDATION: ROUTINE SCREENING COMMENT: The patient has been notified of the results by letter per SA requirements. Additional no tification policies are in place for contacting patient with suspicious or incomplete findings. Quality ID #[id number]: The [employer] recommends an annual screening mammogram for women aged 40 years or over. This facility utilizes a reminder system to ensure that all patients receive reminder letters, and/or direct phone calls for appointments. This includes reminders for routine scr eening mammograms, diagnostic mammograms, or other Breast Imaging Interventions when appropriate. Th is patient will be placed in the appropriate reminder system. The [employer] (ACR) has developed recommendations for screening MRI of the breast s in certain patient populations, to be used in conjunction with mammography. Breast MRI surveillanc e may be appropriate for women with more than 20% lifetime risk of developing breast cancer as deter mined by genetic testing, significant family history of the disease, or history of mantle radiation f or Hodgkins Disease. ACR Practice Guidelines 2008. TECHNICAL DOCUMENTATION: FINDING NUMBER: (1) ASSESSMENT: (1) JOB ID: [id number] [employer] All Rights Reserved Reading location - IP/workstation name: [email or web address]
== END ==
LOC: WI 10:02
PROVIDERS: ATTEND Physician Assistant
DX: Z12.31 Encounter for screening mammogram for malignant neoplasm of breast (principal)
CPT/HCPCS: 77067

== ENCOUNTER → 2018-10-25 | Outpatient (CLI) | payer MEDICARE, OTHER ==
[2018-10-25 10:45] LABS: APPEARANCE,URINE SLIGHTLY-CLOUDY; BILIRUBIN,URINE NEGATIVE (NEGATIVE); COLOR,URINE YELLOW; GLUCOSE, URINE NEGATIVE (NEGATIVE); KETONES,URINE NEGATIVE (NEGATIVE); LEUKOCYTE ESTERASE,URINE NEGATIVE (NEGATIVE); NITRITE,URINE NEGATIVE (NEGATIVE); PROTEIN,URINE NEGATIVE (NEGATIVE); URINE SPECIFIC GRAVITY 1.013; UROBILINOGEN,URINE NEGATIVE mg/dL (<2.0)
[2018-10-25 10:59] LABS: HEMOGLOBIN 13.6 g/dL (12.0-15.5); MEAN CORPUSCULAR HEMOGLOBIN 30.8 pg (27.0-33.4); MEAN CORPUSCULAR HGB CONC 34.8 g/dL (32.0-36.0); MEAN CORPUSCULAR VOLUME 89 fl (80-97); PLATELET COUNT 212 10^3/uL (150-450); RED CELL DISTRIBUTION WIDTH 13.2 % (11.5-14.0); WHITE BLOOD COUNT 7.1 10^3/uL (4.0-10.5)
[2018-10-25 11:07] LABS: ANION GAP 9 (5-19); BLOOD UREA NITROGEN 23 mg/dL (7-20); CALCIUM 10.5 mg/dL (8.4-10.2); CARBON DIOXIDE 32 mmol/L (22-30); CHLORIDE 102 mmol/L (98-107); GLUCOSE 91 mg/dL (75-110); POTASSIUM 4.4 mmol/L (3.6-5.0); SODIUM 143.1 mmol/L (137-145)
== END ==
LOC: OD 10:01
PROVIDERS: ATTEND Internal Medicine Nephrology
DX: I12.9 Hypertensive chronic kidney disease with stage 1 through stage 4 chronic kidney disease, or unspecified chronic kidney disease (principal); N18.3 Chronic kidney disease, stage 3 (moderate)
CPT/HCPCS: 36415; 80048; 81001; 83735; 85027

== ENCOUNTER → 2019-04-24 | Outpatient (CLI) | payer MEDICARE, OTHER ==
[2019-04-24 11:18] LABS: APPEARANCE,URINE SLIGHTLY-CLOUDY; BILIRUBIN,URINE NEGATIVE (NEGATIVE); COLOR,URINE YELLOW; GLUCOSE, URINE NEGATIVE (NEGATIVE); KETONES,URINE NEGATIVE (NEGATIVE); LEUKOCYTE ESTERASE,URINE NEGATIVE (NEGATIVE); NITRITE,URINE NEGATIVE (NEGATIVE); PROTEIN,URINE 30 mg/dL (NEGATIVE); URINE SPECIFIC GRAVITY 1.018; UROBILINOGEN,URINE NEGATIVE mg/dL (<2.0)
[2019-04-24 11:29] LABS: HEMATOCRIT 39.3 % (36.0-47.0); HEMOGLOBIN 13.5 g/dL (12.0-15.5); MEAN CORPUSCULAR HEMOGLOBIN 30.4 pg (27.0-33.4); MEAN CORPUSCULAR HGB CONC 34.3 g/dL (32.0-36.0); MEAN CORPUSCULAR VOLUME 89 fl (80-97); PLATELET COUNT 209 10^3/uL (150-450); RED BLOOD COUNT 4.43 10^6/uL (3.72-5.28); RED CELL DISTRIBUTION WIDTH 13.2 % (11.5-14.0); WHITE BLOOD COUNT 7.2 10^3/uL (4.0-10.5)
[2019-04-24 11:57] LABS: ANION GAP 9 (5-19); BLOOD UREA NITROGEN 24 mg/dL (7-20); CALCIUM 10.1 mg/dL (8.4-10.2); CARBON DIOXIDE 32 mmol/L (22-30); CHLORIDE 101 mmol/L (98-107); GLUCOSE 92 mg/dL (75-110); POTASSIUM 4.2 mmol/L (3.6-5.0)
== END ==
LOC: OD 10:27
PROVIDERS: ATTEND Internal Medicine Nephrology
DX: I12.9 Hypertensive chronic kidney disease with stage 1 through stage 4 chronic kidney disease, or unspecified chronic kidney disease (principal); N18.3 Chronic kidney disease, stage 3 (moderate)
CPT/HCPCS: 36415; 80048; 81001; 85027

== ENCOUNTER → 2019-05-02 | Outpatient (CLI) | payer MEDICARE, OTHER ==
[2019-05-06 18:57] LABS: ALDOSTERONE RENIN RATIO 2 2.9 (0.0-30.0); RENIN ACTIVITY 1.952 ng/mL/hr (0.167-5.38)
== END ==
LOC: OD 08:26
PROVIDERS: ATTEND Internal Medicine Nephrology
DX: I12.9 Hypertensive chronic kidney disease with stage 1 through stage 4 chronic kidney disease, or unspecified chronic kidney disease (principal); N18.2 Chronic kidney disease, stage 2 (mild)
CPT/HCPCS: 36415; 82088; 82533; 84244; 84443

== ENCOUNTER → 2019-10-21 | Outpatient (CLI) | payer MEDICARE, OTHER ==
--- NOTE | 2019-10-21 12:59 | WOMENS IMAGING REPORT ---
EXAM DESCRIPTION: BONE DENSITY HIP/SPINE COMPLETED DATE/TIME: 10/21/2019 10:04 am REASON FOR STUDY: M81.0 BONE DENSITY Z12.31 ENCNTR SCREEN MAMMOGRAM FOR MALIGNANT NEOPLASM OF UGO M 81.0 AGE-RELATED OSTEOPOROSIS W/O CURRENT PATHOLOGICAL FRAC COMPARISON: None. TECHNIQUE: Dual-Energy X-ray Absorptiometry (DEXA) of the AP Spine and Hip. LIMITATIONS: None. FINDINGS: LUMBAR SPINE: The bone mineral density (BMD) measured from L1-L4 in the AP projection correlates with a T-score of 0.9, which is normal as defined by the World Health Organization. BMD Change vs Baseline: N/A HIP: The bone mineral density (BMD) measured in the left hip correlates with a T-score of -1.0, which is n ormal as defined by the World Health Organization. BMD Change vs Baseline: N/A 10 year Fracture Risk Assessment: Major Osteoporotic Fracture: Not available. Hip Fracture: Not available. IMPRESSION: 1. LUMBAR SPINE WHO CLASSIFICATION: NORMAL. 2. HIP WHO CLASSIFICATION: NORMAL. OVERALL ASSESSMENT: WHO CLASSIFICATION: NORMAL. COMMENT: The World Health Organization defines low BMD as follows: T-score: Normal: Greater than -1.0 Osteopenia: Between -1.0 and -2.5 Osteoporosis: Less than -2.5 without fractures Established osteoporosis: Less than -2.5 with fractures In general, you may wish to consider: Diagnosis Treatment Follow-up DEXA Normal BMD Prevention 2-3 years Osteopenia Prevention/Therapy 1-2 years Osteoporosis Therapy Yearly TECHNICAL DOCUMENTATION: JOB ID: [id number] [employer]- All Rights Reserved Reading location - IP/workstation name: [email or web address]
--- NOTE | 2019-10-21 13:41 | WOMENS IMAGING REPORT ---
EXAM DESCRIPTION: 3D SCREENING MAMMO BILAT COMPLETED DATE/TIME: 10/21/2019 10:04 am REASON FOR STUDY: Z12.31 SCREENING MAMMO Z12.31 ENCNTR SCREEN MAMMOGRAM FOR MALIGNANT NEOPLASM OF B RE M81.0 AGE-RELATED OSTEOPOROSIS W/O CURRENT PATHOLOGICAL FRAC COMPARISON: 10/10/2018. EXAM PARAMETERS: Standard craniocaudal and mediolateral oblique views of each breast recorded using digital acquisition and breast tomosynthesis. Read with the assistance of CAD. .[facility] - R2 [employer] Version 9.2 LIMITATIONS: None. FINDINGS: RIGHT BREAST MASSES: No suspicious masses. CALCIFICATIONS: No new or suspicious calcifications. ARCHITECTURAL DISTORTION: None. ASYMMETRY: None noted. OTHER: No other significant findings. LEFT BREAST MASSES: Small mass in the upper-outer breast, located 8 cm from the nipple. This appears to have shilpi ewhat indistinct margins on tomosynthesis images. CALCIFICATIONS: No new or suspicious calcifications. ARCHITECTURAL DISTORTION: None. ASYMMETRY: None noted. OTHER: No other significant findings. IMPRESSION: Small mass in the upper-outer left breast with slightly indistinct margins. Stable mamm ographic appearance of the right breast. 0 Incomplete: Needs Additional Imaging Evaluation and/or prior Mammograms for Comparison. BREAST DENSITY: b. There are scattered areas of fibroglandular density. BIRAD: ASSESSMENT: 0 Incomplete: Needs Additional Imaging Evaluation and/or prior Mammograms for C omparison. RECOMMENDATION: RECOMMENDED FOLLOW-UP: Recommend additional evaluation with compression views of the left breast and ultrasound of the left breast. Recommend routine screening mammography of the right breast. The patient will be contacted for additional imaging. COMMENT: The patient has been notified of the results by letter per SA requirements. Additional no tification policies are in place for contacting patient with suspicious or incomplete findings. Quality ID #225: The [employer] recommends an annual screening mammogram for women aged 40 years or over. This facility utilizes a reminder system to ensure that all patients receive reminder letters, and/or direct phone calls for appointments. This includes reminders for routine scr eening mammograms, diagnostic mammograms, or other Breast Imaging Interventions when appropriate. Th is patient will be placed in the appropriate reminder system. TECHNICAL DOCUMENTATION: FINDING NUMBER: (1) ASSESSMENT: (1) JOB ID: [id number] [employer] All Rights Reserved Reading location - IP/workstation name: [email or web address]
== END ==
LOC: WI 09:15
PROVIDERS: ATTEND Internal Medicine
DX: Z12.31 Encounter for screening mammogram for malignant neoplasm of breast (principal); M81.0 Age-related osteoporosis without current pathological fracture
CPT/HCPCS: 77063; 77067; 77080

== ENCOUNTER → 2019-10-27 | Outpatient (CLI) | payer MEDICARE, OTHER ==
--- NOTE | 2019-10-27 14:34 | WOMENS IMAGING REPORT ---
EXAM DESCRIPTION: LEFT DIAGNOSTIC MAMMO W/CAD; U/S BREAST UNILAT LIMITED COMPLETED DATE/TIME: 10/27/2019 1:06 pm; 10/27/2019 1:55 pm REASON FOR STUDY: R92.2 LEFT DX; LT BREASR R92.2 R92.2 INCONCLUSIVE MAMMOGRAM COMPARISON: 2019. 10/21/2019. EXAM PARAMETERS: Spot CC and MLO. Non spot compressed true lateral. Targeted breast ultrasound. LIMITATIONS: None. FINDINGS: BREAST LATERALITY: Left MASSES: No suspicious masses. CALCIFICATIONS: No new or suspicious calcifications. ARCHITECTURAL DISTORTION: None. ASYMMETRY: None noted. OTHER: No other significant findings. Ultrasound: Scanning of the upper outer quadrant in the region of interest reveals no mass or tissue distortion. IMPRESSION: Negative diagnostic imaging left breast. BREAST DENSITY: b. There are scattered areas of fibroglandular density. BIRAD: ASSESSMENT: 1 Negative. RECOMMENDATION: RECOMMENDED FOLLOW UP: Birads 1 or 2: The patient should resume routine screening . SPECIFIC INTERVENTION/IMAGING/CONSULTATION RECOMMENDED:No additional intervention/ imaging/consultati on needed at this time. COMMUNICATION:No significant abnormalities to discuss with the patient today. COMMENT: The patient has been notified of the results by letter per MQSA requirements. Additional no tification policies are in place for contacting patient with suspicious or incomplete findings. Quality ID #225: The [employer] recommends an annual screening mammogram for women aged 40 years or over. This facility utilizes a reminder system to ensure that all patients receive reminder letters, and/or direct phone calls for appointments. This includes reminders for routine scr eening mammograms, diagnostic mammograms, or other Breast Imaging Interventions when appropriate. Th is patient will be placed in the appropriate reminder system. TECHNICAL DOCUMENTATION: FINDING NUMBER: (1) ASSESSMENT: (1) JOB ID: [id number] [employer]- All Rights Reserved Reading location - IP/workstation name: [email or web address]
== END ==
LOC: WI 12:50
PROVIDERS: ATTEND Internal Medicine
DX: R92.2 Inconclusive mammogram (principal)
CPT/HCPCS: 76642; 77065

== ENCOUNTER → 2020-04-19 | Outpatient (CLI) | payer MEDICARE, OTHER ==
[2020-04-19 12:06] LABS: HEMATOCRIT 39.7 % (36.0-47.0); HEMOGLOBIN 13.7 g/dL (12.0-15.5); MEAN CORPUSCULAR HGB CONC 34.6 g/dL (32.0-36.0); MEAN CORPUSCULAR VOLUME 90 fl (80-97); PLATELET COUNT 214 10^3/uL (150-450); RED BLOOD COUNT 4.42 10^6/uL (3.72-5.28); RED CELL DISTRIBUTION WIDTH 13.1 % (11.5-14.0)
[2020-04-19 12:09] LABS: APPEARANCE,URINE CLEAR; BILIRUBIN,URINE NEGATIVE (NEGATIVE); COLOR,URINE YELLOW; GLUCOSE, URINE NEGATIVE (NEGATIVE); KETONES,URINE NEGATIVE (NEGATIVE); LEUKOCYTE ESTERASE,URINE NEGATIVE (NEGATIVE); NITRITE,URINE NEGATIVE (NEGATIVE); PROTEIN,URINE 100 mg/dL (NEGATIVE); URINE SPECIFIC GRAVITY 1.013; UROBILINOGEN,URINE NEGATIVE mg/dL (<2.0)
[2020-04-19 12:28] LABS: ALBUMIN 5.2 g/dL (3.5-5.0); ALKALINE PHOSPHATASE 59 U/L (38-126); ANION GAP 13 (5-19); ASPARTATE AMINO TRANSFERASE 36 U/L (14-36); BILIRUBIN,TOTAL 1.1 mg/dL (0.2-1.3); BLOOD UREA NITROGEN 32 mg/dL (7-20); CALCIUM 10.4 mg/dL (8.4-10.2); CARBON DIOXIDE 29 mmol/L (22-30); CHLORIDE 98 mmol/L (98-107); CREATINE KINASE 58 U/L (30-135); GLUCOSE 106 mg/dL (75-110); POTASSIUM 4.2 mmol/L (3.6-5.0); TOTAL PROTEIN 8.6 g/dL (6.3-8.2)
== END ==
LOC: OD 10:24
PROVIDERS: ATTEND Internal Medicine Nephrology
DX: N18.9 Chronic kidney disease, unspecified (principal)
CPT/HCPCS: 36415; 80053; 81001; 82550; 83615; 83735; 85027; 86038

== ENCOUNTER → 2020-09-29 | Outpatient (CLI) | payer MEDICARE, OTHER | LOC: OD 12:12 | PROVIDERS: ATTEND Specialist | DX: H53.2 Diplopia (principal); R73.03 Prediabetes | CPT/HCPCS: 36415; 83036 ==